=== PATIENT | male | born 1930 | race Hispanic/Latino ===

== ENCOUNTER 2017-03-03 10:58 | Outpatient (CLI) | payer MEDICARE ==
[2017-03-03] MEDS ORDERED: ANTIBIOTIC OINT TP ONE (12:10)
[2017-03-03] MEDS ORDERED: XYLOCAINE TOPICAL 4% TP ONE (13:00)
[2017-03-03] MEDS ORDERED: ANTIBIOTIC OINT TP SCH (22:00)
== END 2017-03-03 10:59 | disposition home or self-care (01) ==
LOC: WOUND 10:58
PROVIDERS: ATTEND Nurse Practitioner
DX: E11.621 Type 2 diabetes mellitus with foot ulcer (principal); I87.303 Chronic venous hypertension (idiopathic) without complications of bilateral lower extremity; L97.421 Non-pressure chronic ulcer of left heel and midfoot limited to breakdown of skin; L02.12 Furuncle of neck; B37.2 Candidiasis of skin and nail; I25.2 Old myocardial infarction; L84 Corns and callosities; Z86.718 Personal history of other venous thrombosis and embolism; Z86.73 Personal history of transient ischemic attack (TIA), and cerebral infarction without residual deficits; Z96.619 Presence of unspecified artificial shoulder joint; Z96.649 Presence of unspecified artificial hip joint; Z87.891 Personal history of nicotine dependence; Z72.89 Other problems related to lifestyle
CPT/HCPCS: 11055

== ENCOUNTER 2017-03-17 11:07 | Outpatient (CLI) | payer MEDICARE ==
[2017-03-17] MEDS ORDERED: XYLOCAINE TOPICAL 4% TP ONE ×2 (11:50→15:40)
== END 2017-03-17 11:08 | disposition home or self-care (01) ==
LOC: WOUND 11:07
PROVIDERS: ATTEND Nurse Practitioner
DX: I87.332 Chronic venous hypertension (idiopathic) with ulcer and inflammation of left lower extremity (principal); E11.621 Type 2 diabetes mellitus with foot ulcer; L97.421 Non-pressure chronic ulcer of left heel and midfoot limited to breakdown of skin; I25.2 Old myocardial infarction; L84 Corns and callosities; B37.2 Candidiasis of skin and nail; Z86.718 Personal history of other venous thrombosis and embolism; Z86.73 Personal history of transient ischemic attack (TIA), and cerebral infarction without residual deficits; Z96.649 Presence of unspecified artificial hip joint

== ENCOUNTER 2017-04-14 11:10 | Outpatient (CLI) | payer MEDICARE ==
[2017-04-14] MEDS ORDERED: XYLOCAINE TOPICAL 4% TP ONE ×2 (11:49→11:51)
== END 2017-04-14 11:11 | disposition home or self-care (01) ==
LOC: WOUND 11:10
PROVIDERS: ATTEND Nurse Practitioner
DX: E11.621 Type 2 diabetes mellitus with foot ulcer (principal); L97.421 Non-pressure chronic ulcer of left heel and midfoot limited to breakdown of skin; I87.312 Chronic venous hypertension (idiopathic) with ulcer of left lower extremity; F17.200 Nicotine dependence, unspecified, uncomplicated; Z86.718 Personal history of other venous thrombosis and embolism; Z86.73 Personal history of transient ischemic attack (TIA), and cerebral infarction without residual deficits; Z96.649 Presence of unspecified artificial hip joint; Z96.619 Presence of unspecified artificial shoulder joint; Z72.89 Other problems related to lifestyle

== ENCOUNTER 2017-04-28 08:34 | Outpatient (CLI) | payer MEDICARE | END 2017-04-28 08:35 | disposition home or self-care (01) | LOC: WOUND 08:34 | PROVIDERS: ATTEND Nurse Practitioner | DX: E11.621 Type 2 diabetes mellitus with foot ulcer (principal); L97.421 Non-pressure chronic ulcer of left heel and midfoot limited to breakdown of skin; I25.2 Old myocardial infarction; Z86.718 Personal history of other venous thrombosis and embolism; Z86.73 Personal history of transient ischemic attack (TIA), and cerebral infarction without residual deficits; Z96.649 Presence of unspecified artificial hip joint; Z96.619 Presence of unspecified artificial shoulder joint; Z87.891 Personal history of nicotine dependence; Z72.89 Other problems related to lifestyle | CPT/HCPCS: 99213; G0463 ==